=== PATIENT | male | born 1945 | race Caucasian/White ===

== ENCOUNTER → 2018-11-28 12:31 | Outpatient (CLI) | payer MEDICARE, SELFPAY ==
--- NOTE | 2018-11-28 12:35 | XR_ITS ---
XR chest 2V HISTORY: ITS.REASON: dyspnea ORDERING PHYSICIAN: Yamileth Eubanks PATIENT AGE: 72 years COMPARISON: None available FINDINGS: The lung grace are well expanded. There is opacity and blunting of the left costophrenic angle appearance suggesting a small to moderate-sized pleural effusion extending at the left chest wall to almost the level of the hilum. The left mid and upper lung field are clear and right lung field is well expanded and clear. There is mild generalized cardio megaly. The pulmonary vascularity appears normal. There is left atrial appendage clip seen. There are sternal wire sutures and surgical clips likely from previous bypass procedure. There is a left infraclavicular cardiac device with dual chamber electrodes both in good position. There is a coronary artery stent noted. There is mild generalized osteopenia the thoracic spine but there is no compression fracture. IMPRESSION: Mild generalized cardio megaly small moderate size left pleural effusion however without previous films for comparison findings could be due to chronic pleural scarring, there is no pulmonary congestion to suggest congestive failure.
[2018-11-28 13:10] LABS: Anion Gap 13.8 mEq/L (5-15); Blood Urea Nitrogen 28 mg/dL (7-18); Calcium 8.8 mg/dL (8.5-10.1); Carbon Dioxide 26 mmol/L (21.0-32.0); Chloride 103 mmol/L (98-107); Creatinine,Serum 1.88 mg/dL (0.70-1.30); Estimated Glomerular Filt Rate 35 ml/min (>60); GFR (African American) 43 ML/MIN (>60); Glucose 227 mg/dL (74-106); Potassium 4.8 mmoL/L (3.5-5.1); Sodium 138 mmol/L (136-145)
== END ==
PROVIDERS: PCP Family Medicine; Visit Provider Urology
DX: E11.9 Type 2 diabetes mellitus without complications (principal); I11.0 Hypertensive heart disease with heart failure; I25.10 Atherosclerotic heart disease of native coronary artery without angina pectoris; I48.0 Paroxysmal atrial fibrillation; I50.22 Chronic systolic (congestive) heart failure; N18.4 Chronic kidney disease, stage 4 (severe); Z95.810 Presence of automatic (implantable) cardiac defibrillator; E78.49 Other hyperlipidemia; Z79.84 Long term (current) use of oral hypoglycemic drugs
CPT/HCPCS: 36415; 71046; 80048; 83880

== ENCOUNTER → 2018-12-10 10:36 | Outpatient (CLI) | payer MEDICARE, SELFPAY ==
--- NOTE | 2018-12-10 10:39 | CA_ITS ---
PROCEDURE: 2-D M-mode and color Doppler study INDICATIONS FOR THE TEST: Chest pain COPD Heart Murmur Tobacco Smoking Palpitations Fatigue Syncope Edema+ Hypertension+Diabetes Mellitus Rheumatic Fever SOB [place] Obesity Hyperlipidemia+ Family History HD Additional History CHF,,CABG,AICD,CAD PATIENT INFORMATION HEIGHT: 70 WEIGHT:182 GENDER: Male B/P:128/69 2-D/M-MODE INTERPRETATION: 2-D MEASUREMENTS OBSERVED VALUES IN CMS Right Ventricular Dimension (RVDd) 1.4 Interventricular Septum (Thickness)(IVsd) 0.8 Left Ventricular Internal Dimensions(LVIDd) 8.2 Left Ventricular Posterior Wall (Thickness)(LVPWd) 0.9 Aortic Root 3.3 Aortic Cusp Separation 2.3 Left Atrial Dimensions (LAD) 5.3 2D 1. Left atrium is moderately enlarged, left ventricle is moderately dilated, there is severely reduced left ventricular systolic function, visually estimated ejection fraction approximately 20-25%, there is marked hypokinesis involving mid to distal septum, anterior, anteroapical, apex and inferior apical wall. 2. The right atrium and right ventricle are normal size and contractility, there is an ICD lead seen in the right ventricle. 3. The aortic valve is thickened and calcified leaflet continue to display mobility. 4. The mitral valve has mitral calcification, posterior mitral leaflet is redundant. 5. The tricuspid valve is grossly normal. 6. Pulmonic valve is minimally thickened and fibrosed. 7. No significant pericardial effusion noted. DOPPLER INTERROGATION: 1. The aortic out flow velocity within normal range, there is no aortic stenosis, there is mild aortic insufficiency. 2. The mitral inflow velocity within normal range, there is no mitral stenosis, there is moderate to severe mitral regurgitation. 3. There is mild tricuspid regurgitation, tricuspid regurgitation jet velocity is inadequate for calculation of the right ventricular systolic pressure. 4. There is severe pulmonic insufficiency seen. CONCLUSION: 1. Left atrium is moderately enlarged, moderately dilated left ventricle, severely reduced left ventricular systolic function, visually estimated ejection fraction of 20-25% with multiple segmental wall motion abnormality described above, Doppler evidence of raised left atrial pressure. 2. Mild aortic, moderate to severe mitral, severe pulmonic and mild tricuspid regurgitation. 3. No significant pericardial effusion noted.
== END ==
PROVIDERS: PCP Family Medicine; Visit Provider Internal Medicine
DX: R06.02 Shortness of breath (principal)
CPT/HCPCS: 93306

== ENCOUNTER 2019-01-06 10:30 | Inpatient (IN) ==
[2019-01-06 10:01] LABS: Anion Gap 12.8 mEq/L (5-15); Blood Urea Nitrogen 28 mg/dL (7-18); Calcium 9.1 mg/dL (8.5-10.1); Carbon Dioxide 32 mmol/L (21.0-32.0); Chloride 98 mmol/L (98-107); Glucose 261 mg/dL (74-106); Potassium 3.8 mmoL/L (3.5-5.1); Sodium 139 mmol/L (136-145)
[2019-01-06 11:17] LABS: Basophils % 0.2 % (0.1-2.0); Eosinophils # 0.1 K/mm3 (0.0-0.4); Eosinophils % 2.9 % (0.1-12.0); Hematocrit 35.1 % (42.0-52.0); Hemoglobin 11.4 g/dL (14.1-18.0); Lymphocytes # 1.3 K/mm3 (0.7-4.5); Mean Corpuscular HGB Conc 32.5 g/dL (31.8-35.4); Mean Corpuscular Hemoglobin 28.5 pg (27.0-31.2); Mean Corpuscular Volume 87.8 fl (80-94); Mean Platelet Volume 9.1 fl (7.4-10.4); Monocytes # 0.3 K/mm3 (0.1-1.0); Monocytes % 7.3 % (1.7-9.3); Neutrophils # 2.5 K/mm3 (1.8-7.8); Neutrophils % 59.5 % (37.0-80.0); Platelet Count 124 K/mm3 (142-424); Red Blood Count 3.99 M/mm3 (4.60-6.20); Red Cell Distribution Width 14.4 % (11.5-17.5); White Blood Count 4.2 K/mm3 (4.8-10.8)
[2019-01-06 11:56] LABS: Basophils % 0.4 % (0.1-2.0); Eosinophils # 0.1 K/mm3 (0.0-0.4); Eosinophils % 2.7 % (0.1-12.0); Hematocrit 35.4 % (42.0-52.0); Hemoglobin 11.6 g/dL (14.1-18.0); Lymphocytes # 1.3 K/mm3 (0.7-4.5); Lymphocytes % 28.8 % (10-50); Mean Corpuscular HGB Conc 32.8 g/dL (31.8-35.4); Mean Corpuscular Hemoglobin 28.3 pg (27.0-31.2); Mean Corpuscular Volume 86.4 fl (80-94); Mean Platelet Volume 9.3 fl (7.4-10.4); Monocytes # 0.3 K/mm3 (0.1-1.0); Monocytes % 6.9 % (1.7-9.3); Neutrophils # 2.8 K/mm3 (1.8-7.8); Neutrophils % 61.2 % (37.0-80.0); Platelet Count 135 K/mm3 (142-424); Red Cell Distribution Width 14.6 % (11.5-17.5); White Blood Count 4.6 K/mm3 (4.8-10.8)
[2019-01-06 11:58] LABS: Anion Gap 10.6 mEq/L (5-15); Calcium 9.2 mg/dL (8.5-10.1); Potassium 3.6 mmoL/L (3.5-5.1)
[2019-01-07 06:16] LABS: Basophils % 0.4 % (0.1-2.0); Eosinophils # 0.1 K/mm3 (0.0-0.4); Eosinophils % 2.7 % (0.1-12.0); Hematocrit 33.1 % (42.0-52.0); Hemoglobin 10.6 g/dL (14.1-18.0); Lymphocytes # 1.4 K/mm3 (0.7-4.5); Lymphocytes % 26.7 % (10-50); Mean Corpuscular HGB Conc 31.9 g/dL (31.8-35.4); Mean Corpuscular Hemoglobin 27.7 pg (27.0-31.2); Mean Corpuscular Volume 86.7 fl (80-94); Mean Platelet Volume 10.1 fl (7.4-10.4); Monocytes # 0.3 K/mm3 (0.1-1.0); Monocytes % 5.8 % (1.7-9.3); Neutrophils # 3.4 K/mm3 (1.8-7.8); Neutrophils % 64.4 % (37.0-80.0); Platelet Count 123 K/mm3 (142-424); Red Blood Count 3.82 M/mm3 (4.60-6.20); Red Cell Distribution Width 14.3 % (11.5-17.5); White Blood Count 5.3 K/mm3 (4.8-10.8)
[2019-01-07 06:32] LABS: Anion Gap 11.4 mEq/L (5-15); Calcium 8.9 mg/dL (8.5-10.1); Potassium 3.4 mmoL/L (3.5-5.1)
[2019-01-07 08:18] LABS: Albumin Level 3.1 gm/dL (3.4-5.0); Bilirubin,Direct 0.2 mg/dL (0.0-0.2); Bilirubin,Indirect 0.5 mg/dL (0.0-0.9); Bilirubin,Total 0.7 mg/dL (0.2-1.0); Chol/HDL Ratio 4.5 (1-3.5); Total Protein,Serum 6.1 gm/dL (6.4-8.2)
--- NOTE | 2019-01-07 08:22 | Pharmacy Consult Notes ---
[facility] Pharmacy VTE Monitoring - Patient Demographics Admission date: 01/06/19 Report Date: 01/07/19 Time: 08:21 Allergies/Adverse Reactions: Patient Allergies celecoxib [From Celebrex] Allergy (Mild, Verified 01/06/19 09:17) cortisone Allergy (Mild, Verified 01/06/19 09:17) ibuprofen Allergy (Mild, Verified 01/06/19 09:17) Xsmauwt-Ivo-Vab Reductase Inhibitor Allergy (Mild, Verified 01/06/19 09:17) penicilin Allergy (Mild, Uncoded 01/06/19 09:17) Height: 1.78 m Weight: 82.146 kg - VTE Risk Labs: VTE Related Lab Results Hgb 10.6 g/dL (14.1-18.0) L 01/07/19 05:39 Hct 33.1 % (42.0-52.0) L 01/07/19 05:39 Plt Count 123 K/mm3 (142-424) L 01/07/19 05:39 BUN 25 mg/dL (7-18) H 01/07/19 05:39 Creatinine 2.03 mg/dL (0.70-1.30) H 01/07/19 05:39 Estimated Creat Clear 37 mL/min (50-200) 01/07/19 05:39 Was VTE Risk Assessment Performed: Yes VTE Score: 6 VTE Risk Level: Moderate Risk Clinical Trial Participant: No - Prophylaxis VTE Prophylaxis Ordered?: Yes Types of VTE Prophylaxis: TEDS Knee High Location of Applied Device: Refused
--- NOTE | 2019-01-07 11:35 | Progress Note ---
Subjective Date: 01/07/19 Time: 11:32 Principal diagnosis: CHF, CAD Interval history: This is a 73-year-old gentleman who was seen in Dr. Rivero's outpatient clinic yesterday. The patient was found to have new onset regurgitation. The patient was having shortness of breath and edema. He was having symptoms of class IV congestive heart failure and in the setting of moderate to severe mitral regurgitation this was thought to maybe be an ischemic mitral regurgitation from his history of circumflex disease. The patient underwent right and left cardiac catheterization yesterday secondary to his symptoms and new onset of moderate to severe mitral regurgitation. The patient required no PCI, but was found to have severely elevated PA pressures. The patient was started on a milrinone drip through the night. His edema has significantly improved. The patient reports that he is no longer short of breath. His creatinine remained stable. Denies any chest pain or pressure. No shortness of breath. He states his edema is much better. No fever chills nausea vomiting diarrhea PND or orthopnea. Exam Vital signs and Labs for Last 24 Hours: Temp Pulse Resp BP Pulse Ox 98.5 F 68 16 114/57 L 99 01/07/19 04:00 01/07/19 08:00 01/07/19 08:00 01/07/19 06:59 01/07/19 08:00 Laboratory Results - last 24 hr 01/06/19 08:59: B-Natriuretic Peptide 913 H 01/06/19 10:50: WBC 4.6 L, RBC 4.10 L, Hgb 11.6 L, Hct 35.4 L, MCV 86.4, MCH 28.3, MCHC 32.8, RDW 14.6, Plt Count 135 L, MPV 9.3, Neut % (Auto) 61.2, Lymph % (Auto) 28.8, [place] % (Auto) 6.9, Eos % (Auto) 2.7, Baso % (Auto) 0.4, Neut # (Auto) 2.8, Lymph # (Auto) 1.3, [place] # (Auto) 0.3, Eos # (Auto) 0.1, Baso # (Auto) 0.0 01/06/19 10:50: Sodium 137, Potassium 3.6, Chloride 98, Carbon Dioxide 32, Anion Gap 10.6, BUN 29 H, Creatinine 2.18 H, Estimated Creat Clear 34, Estimated GFR 30 L, Est GFR ( Amer) 36 L, Glucose 265 H, Calcium 9.2 01/06/19 11:32: POC Glucose 300 H 01/06/19 12:50: ABG O2 Sat (Measured) 66 L, POC VBG O2 Sat ([place]) 67 L 01/06/19 16:51: POC Glucose 116 H 01/06/19 20:01: POC Glucose 226 H 01/07/19 05:16: POC Glucose 146 H 01/07/19 05:39: WBC 5.3, RBC 3.82 L, Hgb 10.6 L, Hct 33.1 L, MCV 86.7, MCH 27.7, MCHC 31.9, RDW 14.3, Plt Count 123 L, MPV 10.1, Neut % (Auto) 64.4, Lymph % (Auto) 26.7, [place] % (Auto) 5.8, Eos % (Auto) 2.7, Baso % (Auto) 0.4, Neut # (Auto) 3.4, Lymph # (Auto) 1.4, [place] # (Auto) 0.3, Eos # (Auto) 0.1, Baso # (Auto) 0.0 01/07/19 05:39: Sodium 141, Potassium 3.4 L, Chloride 103, Carbon Dioxide 30, Anion Gap 11.4, BUN 25 H, Creatinine 2.03 H, Estimated Creat Clear 37, Estimated GFR 32 L, Est GFR ( Amer) 39 L, Glucose 150 H D, Calcium 8.9, Magnesium 2.0 01/07/19 05:39: Total Bilirubin 0.7, Direct Bilirubin 0.2, Indirect Bilirubin 0.5, AST 14 L, ALT 10 L, Alkaline Phosphatase 24 L, Total Protein 6.1 L, Albumin 3.1 L, Triglycerides 92, Cholesterol 121 L, LDL Cholesterol 76, VLDL Cholesterol 18, HDL Cholesterol 27, Cholesterol/HDL Ratio 4.5 H I & O for Last 24 hours: Intake & Output 01/04/19 01/05/19 01/06/19 01/07/19 23:59 23:59 23:59 23:59 Intake Total 720 / 720 673 / 673 Output Total 1075 / 1075 Balance 720 / 720 -402 / -402 Weight 180 lb 4 oz 181 lb 1.6 oz Narrative: Telemetry strip is sinus rhythm with a rate of 69. - Constitutional no acute distress, average body habitus - *Routine HEENT Exam Head: Present: normocephalic, atraumatic Eye: Present: EOMI, PERRL ENT: Present: mucous membranes moist - *Routine Neck Exam Present: supple, full ROM, carotid bruit, normal carotid upstroke. Absent: JVD, lymphadenopathy - *Routine Respiratory Exam Present: CTA bilaterally - *Routine Cardiovascular Exam Present: RRR, Normal S1, Normal S2, murmur (3 out of 6 systolic murmur) - *Routine Abdominal Exam Present: soft, normoactive bowel sounds. Absent: tenderness - *Routine Extremities Exam Present: full ROM, pulses intact, normal capillary refill. Absent: cyanosis, clubbing, edema - *Routine Skin Exam Present: intact, warm. Absent: rash - *Routine Neurological Exam Present: alert, oriented X3, CN II-XII intact. Absent: sensory deficit, motor deficit - Detailed Eye Exam Eyelids: Left normal inspection Progress Note: A&P (1) Acute on chronic systolic (congestive) heart failure Status: Acute Current Visit: Yes (2) Edema Status: Acute Current Visit: No (3) Pulmonic valve regurgitation Status: Acute Current Visit: No (4) History of coronary artery bypass graft Status: Chronic Current Visit: No (5) Dyspnea on exertion Status: Acute Current Visit: No (6) CHF NYHA class IV Status: Acute Current Visit: No (7) Mitral valve regurgitation Status: Acute Current Visit: No (8) CKD (chronic kidney disease) stage 4, GFR 15-29 ml/min Status: Chronic Current Visit: No (9) DM (diabetes mellitus) Status: Chronic Current Visit: No (10) CAD (coronary artery disease) Status: Chronic Current Visit: No (11) HLD (hyperlipidemia) Status: Chronic Current Visit: No (12) HHD (hypertensive heart disease) Status: Chronic Current Visit: No (13) Afib Status: Chronic Current Visit: No (14) AICD (automatic cardioverter/defibrillator) present Status: Chronic Current Visit: No (15) Severe pulmonary arterial systolic hypertension Status: Acute Current Visit: Yes Assessment and Plan for All Diagnoses:: Plan: 1. The patient was admitted to the hospital after his left and right cardiac catheterization secondary to acute on chronic systolic congestive heart failure and severe pulmonary hypertension. The patient was started on a milrinone drip. He has diuresed well. The patient no longer has bilateral lower extremity edema and he states that his shortness of breath has essentially resolved. We will go ahead and stop the milrinone drip. 2. We will stop his oral Lasix and switch him over to torsemide 50 mg daily for diuresis. 3. The patient has been started on Entresto 24/26 mg p.o. twice daily for his heart failure. 4. There has been some confusion about the patient's losartan. He states that he is sure he is not taking this medication. However [facility] pharmacy on [address] says that the patient has been filling this medication every month. The patient has been educated on not taking his losartan and replacing that with Entresto if he indeed has this medication at home although he states he does not. 5. His coronary artery disease is stable. 6. His blood pressure is well controlled 7. His LDL goal is less than 55. His LDL is currently 76. He is intolerant of statins. His fenofibrate was stopped but we will get this restarted. 8. The patient does have chronic kidney disease. His creatinine is stable at 2.0. We will repeat a BMP in 1 week. 9. The patient does have diabetes. This is being managed per his primary care provider. 10. No further recommendations at this time from a cardiovascular standpoint. The patient can be discharged home from a cardiovascular standpoint and he needs to follow-up in 1 week on an outpatient basis. 11. The plan will be to continue to diurese the patient for 1 month on an outpatient basis. We will repeat his echocardiogram in 1 month and if he still has moderate to severe mitral regurgitation he will require a mitral clip at that time. However in 1 month if his mitral valve regurgitation has improved then he will not require surgery. The patient verbalizes understanding. Thank you for the opportunity to help participate in the care of this patient.
--- NOTE | 2019-01-07 13:14 | H&P/Discharge Summary ---
General - General Admission date:: 01/06/19 Discharge date: 01/07/19 *Admission Date: 01/06/19 *Chief complaint: sob *History of present illness: this wm was seen by card and has op heart cath and because of abd finding in cath-Adequate coronary artery revascularization as described above 2.Elevated left-sided filling pressures with severe pulmonary hypertension PLAN: 1. Patient will be started on low-dose milrinone and admitted to the hospital for decompensated heart failure 2. Patient will be restarted on losartan. Historically patient developed increasing creatinine however it was possible this came from accelerated doses of Lasix 3. Consideration will be given to perform mitral clip based on interval development of severe MR 4. Continue standard therapy for systolic heart failure 5. Patient may be a candidate for cardiac resynchronization therapy. Telemetry today reveals the QRS duration is 120 ms. I will evaluate the 12-lead EKG and if her QRS duration is 120 ms we will likely perform NURSE SPECIAL-D therapy for this patient as the severe mitral regurgitation likely common from the interval development of conduction abnormalities pt was admitted for milrinone drip [facility] History I have reviewed the patient's past medical history: Yes Medical History: Reports:: Congestive Heart Failure, Coronary Artery Disease, Diabetes Mellitus Type 2, Heart Murmur, Hyperlipidemia, Hypertension, Internal Pacemaker, Myocardial Infarction, Peripheral Artery Disease Denies:: Cancer, Diabetes Mellitus Type 1, MRSA, Seizures Have you ever received a pneumonia vaccine?: Yes Have you received a flu vaccine this season?: Yes Other Medical History: Reports: Arthritis, Cataracts Other Surgeries: Yes: Angiogram, CABG, Cancer Surgery (2017, 2018), Cardiac Surgery, Cholecystectomy, Mitral Valve Replacement, Pacemaker, Skin Cancer Excision Amputation: No Fractures: No - *Social History Educational Level: Completed Grade School Smoking Status: Never smoker Alcohol Intake: never Substance Use Type: denies use Occupational Status: retired Housing: house Household Members: spouse Travel in the last 8 weeks: None - Psychiatric History Expresses thoughts of harming self/others: None Suicide Plan Description: No Plan Family Hx:: Stroke, Heart Attack Review of Systems - Review of Systems Review of systems:: pertinent systems reviewed and negative unless documented below - Constitutional Reports fatigue, Denies fever(s) - Eyes Denies change in vision - ENT Denies change in voice, Denies sore throat, Denies throat swelling - *Cardiovascular Reports shortness of breath, Denies chest pain - *Respiratory Reports shortness of breath with activity, Denies cough - *Gastrointestinal Denies abdominal pain - *Genitourinary Denies blood in urine - *Musculoskeletal Denies joint swelling, Denies neck pain - Integumentary/Breasts Denies rash - *Neurologic Denies headache(s), Denies seizure-like activity - Psychiatric Denies anxiety Exam Vital signs and Labs for Last 24 Hours: Temp Pulse Resp BP Pulse Ox 98.3 F 73 18 122/56 L 98 01/07/19 08:00 01/07/19 12:00 01/07/19 12:00 01/07/19 12:00 01/07/19 12:00 Laboratory Results - last 24 hr 01/06/19 16:51: POC Glucose 116 H 01/06/19 20:01: POC Glucose 226 H 01/07/19 05:16: POC Glucose 146 H 01/07/19 05:39: WBC 5.3, RBC 3.82 L, Hgb 10.6 L, Hct 33.1 L, MCV 86.7, MCH 27.7, MCHC 31.9, RDW 14.3, Plt Count 123 L, MPV 10.1, Neut % (Auto) 64.4, Lymph % (Auto) 26.7, [place] % (Auto) 5.8, Eos % (Auto) 2.7, Baso % (Auto) 0.4, Neut # (Auto) 3.4, Lymph # (Auto) 1.4, [place] # (Auto) 0.3, Eos # (Auto) 0.1, Baso # (Auto) 0.0 01/07/19 05:39: Sodium 141, Potassium 3.4 L, Chloride 103, Carbon Dioxide 30, Anion Gap 11.4, BUN 25 H, Creatinine 2.03 H, Estimated Creat Clear 37, Estimated GFR 32 L, Est GFR ( Amer) 39 L, Glucose 150 H D, Calcium 8.9, Magnesium 2.0 01/07/19 05:39: Total Bilirubin 0.7, Direct Bilirubin 0.2, Indirect Bilirubin 0.5, AST 14 L, ALT 10 L, Alkaline Phosphatase 24 L, Total Protein 6.1 L, Albumin 3.1 L, Triglycerides 92, Cholesterol 121 L, LDL Cholesterol 76, VLDL Cholesterol 18, HDL Cholesterol 27, Cholesterol/HDL Ratio 4.5 H 01/07/19 13:02: POC Glucose 238 H I & O for Last 24 hours: Intake & Output 01/05/19 01/06/19 01/07/19 01/08/19 11:59 11:59 11:59 11:59 Intake Total 1393 / 1393 Output Total 1075 / 1075 Balance 318 / 318 Weight 181 lb 181 lb 1.6 oz - Constitutional no acute distress - *Routine HEENT Exam Head: Present: normocephalic Eye: Present: EOMI, PERRL ENT: Present: mucous membranes dry - *Routine Neck Exam Absent: JVD, carotid bruit, thyromegaly - *Routine Respiratory Exam Present: CTA bilaterally - *Routine Cardiovascular Exam Present: RRR, murmur, S4 - *Routine Abdominal Exam Present: soft - *Routine Extremities Exam Present: full ROM. Absent: calf tenderness - *Routine Skin Exam Present: intact - *Routine Neurological Exam Present: alert, oriented X3, CN II-XII intact - Routine Psychiatric Exam Present: normal affect Hospital Course Hospital Course: pt did well on drip in hospital with no new sx and labs stable -he was seen by micheal arvizu is a 73-year-old gentleman who was seen in Dr. Rivero's outpatient clinic yesterday. The patient was found to have new onset regurgitation. The patient was having shortness of breath and edema. He was having symptoms of class IV congestive heart failure and in the setting of moderate to severe m itral regurgitation this was thought to maybe be an ischemic mitral regurgitation from his history of circumflex disease. The patient underwent right and left cardiac catheterization yesterday secondary to his symptoms and new onset of moderate to severe mitral regurgitation. The patient required no PCI, but was found to have severely elevated PA pressures. The patient was started on a milrinone drip through the night. His edema has significantly improved. The patient reports that he is no longer short of breath. His creatinine remained stable. Denies any chest pain or pressure. No shortness of breath. He states his edema is much better. No fever chills nausea vomiting diarrhea PND or orthopnea. he patient was admitted to the hospital after his left and right cardiac catheterization secondary to acute on chronic systolic congestive heart failure and severe pulmonary hypertension. The patient was started on a milrinone drip. He has diuresed well. The patient no longer has bilateral lower extremity edema and he states that his shortness of breath has essentially resolved. We will go ahead and stop the milrinone drip. 2. We will stop his oral Lasix and switch him over to torsemide 50 mg daily for diuresis. 3. The patient has been started on Entresto 24/26 mg p.o. twice daily for his heart failure. 4. There has been some confusion about the patient's losartan. He states that he is sure he is not taking this medication. However [facility] pharmacy on [address] says that the patient has been filling this medication every month. The patient has been educated on not taking his losartan and replacing that with Entresto if he indeed has this medication at home although he states he does not. 5. His coronary artery disease is stable. 6. His blood pressure is well controlled 7. His LDL goal is less than 55. His LDL is currently 76. He is intolerant of statins. His fenofibrate was stopped but we will get this restarted. 8. The patient does have chronic kidney disease. His creatinine is stable at 2.0. We will repeat a BMP in 1 week. 9. The patient does have diabetes. This is being managed per his primary care provider. 10. No further recommendations at this time from a cardiovascular standpoint. The patient can be discharged home from a cardiovascular standpoint and he needs to follow-up in 1 week on an outpatient basis. 11. The plan will be to continue to diurese the patient for 1 month on an outpatient basis. We will repeat his echocardiogram in 1 month and if he still has moderate to severe mitral regurgitation he will require a mitral clip at that time. However in 1 month if his mitral valve regurgitation has improved then he will not require surgery. The patient verbalizes understanding. Thank you for the opportunity to help participate in the care of this patient. Results Labs on day of discharge: Labs from last 24 hours 01/07/19 01/07/19 01/07/19 13:02 05:39 05:39 WBC RBC Hgb Hct MCV MCH MCHC RDW Plt Count MPV Neut % (Auto) Lymph % (Auto) [place] % (Auto) Eos % (Auto) Baso % (Auto) Neut # (Auto) Lymph # (Auto) [place] # (Auto) Eos # (Auto) Baso # (Auto) Sodium 141 Potassium 3.4 L Chloride 103 Carbon Dioxide 30 Anion Gap 11.4 BUN 25 H Creatinine 2.03 H Estimated Creat Clear 37 Estimated GFR 32 L Est GFR ( Amer) 39 L Glucose 150 H D POC Glucose 238 H Calcium 8.9 Magnesium 2.0 Total Bilirubin 0.7 Direct Bilirubin 0.2 Indirect Bilirubin 0.5 AST 14 L ALT 10 L Alkaline Phosphatase 24 L Total Protein 6.1 L Albumin 3.1 L Triglycerides 92 Cholesterol 121 L LDL Cholesterol 76 VLDL Cholesterol 18 HDL Cholesterol 27 Cholesterol/HDL Ratio 4.5 H 01/07/19 01/07/19 01/06/19 05:39 05:16 20:01 WBC 5.3 RBC 3.82 L Hgb 10.6 L Hct 33.1 L MCV 86.7 MCH 27.7 MCHC 31.9 RDW 14.3 Plt Count 123 L MPV 10.1 Neut % (Auto) 64.4 Lymph % (Auto) 26.7 [place] % (Auto) 5.8 Eos % (Auto) 2.7 Baso % (Auto) 0.4 Neut # (Auto) 3.4 Lymph # (Auto) 1.4 [place] # (Auto) 0.3 Eos # (Auto) 0.1 Baso # (Auto) 0.0 Sodium Potassium Chloride Carbon Dioxide Anion Gap BUN Creatinine Estimated Creat Clear Estimated GFR Est GFR ( Amer) Glucose POC Glucose 146 H 226 H Calcium Magnesium Total Bilirubin Direct Bilirubin Indirect Bilirubin AST ALT Alkaline Phosphatase Total Protein Albumin Triglycerides Cholesterol LDL Cholesterol VLDL Cholesterol HDL Cholesterol Cholesterol/HDL Ratio 01/06/19 16:51 WBC RBC Hgb Hct MCV MCH MCHC RDW Plt Count MPV Neut % (Auto) Lymph % (Auto) [place] % (Auto) Eos % (Auto) Baso % (Auto) Neut # (Auto) Lymph # (Auto) [place] # (Auto) Eos # (Auto) Baso # (Auto) Sodium Potassium Chloride Carbon Dioxide Anion Gap BUN Creatinine Estimated Creat Clear Estimated GFR Est GFR ( Amer) Glucose POC Glucose 116 H Calcium Magnesium Total Bilirubin Direct Bilirubin Indirect Bilirubin AST ALT Alkaline Phosphatase Total Protein Albumin Triglycerides Cholesterol LDL Cholesterol VLDL Cholesterol HDL Cholesterol Cholesterol/HDL Ratio DS: Diagnosis - Discharge Diagnosis (1) Acute on chronic systolic (congestive) heart failure Status: Acute (2) Edema Status: Acute (3) Pulmonic valve regurgitation Status: Acute (4) History of coronary artery bypass graft Status: Chronic (5) Dyspnea on exertion Status: Acute (6) CHF NYHA class IV Status: Acute (7) Mitral valve regurgitation Status: Acute (8) CKD (chronic kidney disease) stage 4, GFR 15-29 ml/min Status: Chronic (9) DM (diabetes mellitus) Status: Chronic (10) CAD (coronary artery disease) Status: Chronic (11) HLD (hyperlipidemia) Status: Chronic (12) HHD (hypertensive heart disease) Status: Chronic (13) Afib Status: Chronic (14) AICD (automatic cardioverter/defibrillator) present Status: Chronic (15) Severe pulmonary arterial systolic hypertension Status: Acute (16) Thrombocytopenia Status: Acute Discharge Medications - Medications for Discharge Home Medication List at Discharge: New Sacubitril/Valsartan [Entresto 24/26mg Tablet] 1 each PO BID #60 tablet Fenofibrate,Micronized [Tricor 134mg] 134 mg PO PM capsule Continue omeprazole 20 mg capsule,delayed release 20 mg PO DAILY cap clopidogrel 75 mg tablet 75 mg PO DAILY tab carvedilol 12.5 mg tablet 12.5 mg PO BID glipizide 10 mg tablet 20 mg PO DAILY Fenofibrate 160 mg PO DAILY glipiZIDE [Glipizide] 1 - 2 tab PO HS Discontinued Furosemide [Furosemide 40MG tAB] 80 mg PO DAILY
== END 2019-01-07 14:39 | disposition home or self-care (01) | DRG 286 ==
LOC: CATHLAB 10:30 → 2ND 10:30 → OBSVTOIN 13:20
PROVIDERS: ADMIT Emergency Medicine; ATTEND Emergency Medicine
DX: C44.321 Squamous cell carcinoma of skin of nose; I27.22 Pulmonary hypertension due to left heart disease; I50.23 Acute on chronic systolic (congestive) heart failure; I25.10 Atherosclerotic heart disease of native coronary artery without angina pectoris; Z88.0 Allergy status to penicillin; Z95.810 Presence of automatic (implantable) cardiac defibrillator; I37.1 Nonrheumatic pulmonary valve insufficiency; Z79.899 Other long term (current) drug therapy; N18.4 Chronic kidney disease, stage 4 (severe); I25.2 Old myocardial infarction; Z95.5 Presence of coronary angioplasty implant and graft; Z95.1 Presence of aortocoronary bypass graft; I13.0 Hypertensive heart and chronic kidney disease with heart failure and stage 1 through stage 4 chronic kidney disease, or unspecified chronic kidney disease; I48.0 Paroxysmal atrial fibrillation; E11.22 Type 2 diabetes mellitus with diabetic chronic kidney disease; Z88.8 Allergy status to other drugs, medicaments and biological substances; I34.0 Nonrheumatic mitral (valve) insufficiency
CPT/HCPCS: 36415; 80048; 80061; 80076; 82810; 82962; 83735; 83880; 85025; 93461; 99152; C1725; C1769; C1894; J1644; J2260; Q9967

== ENCOUNTER → 2019-01-13 11:32 | Outpatient (CLI) | payer MEDICARE, SELFPAY ==
[2019-01-13 13:09] LABS: Anion Gap 15.4 mEq/L (5-15); Blood Urea Nitrogen 31 mg/dL (7-18); Calcium 8.7 mg/dL (8.5-10.1); Carbon Dioxide 25 mmol/L (21.0-32.0); Chloride 102 mmol/L (98-107); Creatinine,Serum 1.87 mg/dL (0.70-1.30); Estimated Glomerular Filt Rate 35 ml/min (>60); GFR (African American) 43 ML/MIN (>60); Glucose 292 mg/dL (74-106); Potassium 5.4 mmoL/L (3.5-5.1); Sodium 137 mmol/L (136-145)
== END ==
PROVIDERS: Visit Provider Nurse Practitioner Family
DX: N18.4 Chronic kidney disease, stage 4 (severe) (principal)
CPT/HCPCS: 36415; 80048

== ENCOUNTER → 2019-01-27 12:36 | Outpatient (CLI) | payer MEDICARE, SELFPAY ==
[2019-01-27 13:32] LABS: Anion Gap 10.8 mEq/L (5-15); Blood Urea Nitrogen 38 mg/dL (7-18); Calcium 8.8 mg/dL (8.5-10.1); Carbon Dioxide 31 mmol/L (21.0-32.0); Chloride 100 mmol/L (98-107); Creatinine,Serum 2.38 mg/dL (0.70-1.30); Estimated Glomerular Filt Rate 27 ml/min (>60); GFR (African American) 32 ML/MIN (>60); Glucose 263 mg/dL (74-106); Potassium 3.8 mmoL/L (3.5-5.1); Sodium 138 mmol/L (136-145)
== END ==
PROVIDERS: Visit Provider Urology
DX: C44.321 Squamous cell carcinoma of skin of nose (principal); E11.9 Type 2 diabetes mellitus without complications; E78.5 Hyperlipidemia, unspecified; I11.9 Hypertensive heart disease without heart failure; I25.10 Atherosclerotic heart disease of native coronary artery without angina pectoris; I48.91 Unspecified atrial fibrillation; I50.20 Unspecified systolic (congestive) heart failure; N18.4 Chronic kidney disease, stage 4 (severe); Z95.810 Presence of automatic (implantable) cardiac defibrillator; Z79.84 Long term (current) use of oral hypoglycemic drugs
CPT/HCPCS: 36415; 80048

== ENCOUNTER → 2019-02-09 13:17 | Outpatient (CLI) | payer MEDICARE, SELFPAY ==
[2019-02-09 14:02] LABS: Anion Gap 13.8 mEq/L (5-15); Blood Urea Nitrogen 51 mg/dL (7-18); Calcium 9.2 mg/dL (8.5-10.1); Carbon Dioxide 32 mmol/L (21.0-32.0); Chloride 99 mmol/L (98-107); Creatinine,Serum 2.96 mg/dL (0.70-1.30); Estimated Glomerular Filt Rate 21 ml/min (>60); GFR (African American) 25 ML/MIN (>60); Glucose 286 mg/dL (74-106); Potassium 4.8 mmoL/L (3.5-5.1); Sodium 140 mmol/L (136-145)
--- NOTE | 2019-02-09 14:31 | CA_ITS ---
PROCEDURE: Limited 2-D M-mode and color Doppler study INDICATIONS FOR THE TEST: Chest pain COPD Heart Murmur Tobacco Smoking Palpitations Fatigue Syncope Edema Hypertension+Diabetes Mellitus+ Rheumatic Fever SOB [place] Obesity Hyperlipidemia+ Family History HD Additional History CM, MV INSUFF,AICD,A-FIB,CHF,PUL HTN,CABG LIMITED ECHO PATIENT INFORMATION HEIGHT: 70 WEIGHT:181 GENDER: Male B/P:130/62 2-D/M-MODE INTERPRETATION: 2-D MEASUREMENTS OBSERVED VALUES IN CMS Right Ventricular Dimension (RVDd) 2.9 Interventricular Septum (Thickness)(IVsd) 0.8 Left Ventricular Internal Dimensions(LVIDd) 7.5 Left Ventricular Posterior Wall (Thickness)(LVPWd) 0.7 Aortic Root 2.8 Aortic Cusp Separation 2.1 Left Atrial Dimensions (LAD) 4.6 2D 1. The EKG is moderately enlarged, left ventricle is moderately dilated, severely reduced left ventricular systolic function, visually estimated ejection fraction approximately 20-25%, there is marked hypokinesis involving the mid to distal septum, anterior, anteroapical, apex and anterolateral wall. 2. The right atrium and right ventricle are mildly enlarged with normal contractility there is an AICD lead seen in the right ventricle. 3. Aortic valve is thickened and calcified, leaflet continue to display mobility 4. Mitral and tricuspid valve leaflets are minimally thickened, there is mild mitral annular calcification present. 5. The tricuspid valve is grossly normal. 6. The pulmonic valve is poorly visualized. 7. No significant pericardial effusion noted. DOPPLER INTERROGATION: Doppler interrogation of the aortic, mitral and tricuspid valvular presence of mild aortic, moderate mitral and tricuspid regurgitation, tricuspid regurgitation jet velocity is inadequate for calculation of the right ventricular systolic pressure. CONCLUSION: 1. Moderately enlarged left atrium, moderately dilated left ventricle, severely reduced left ventricular systolic function, visually estimated ejection fraction 20-25% with segmental wall motion abnormality described above. 2. Mild aortic, moderate mitral and tricuspid regurgitation 3. No significant pericardial effusion noted.
== END ==
PROVIDERS: PCP Family Medicine; Visit Provider Internal Medicine
DX: E78.5 Hyperlipidemia, unspecified (principal); I11.9 Hypertensive heart disease without heart failure; I25.10 Atherosclerotic heart disease of native coronary artery without angina pectoris; I48.91 Unspecified atrial fibrillation; I50.20 Unspecified systolic (congestive) heart failure
CPT/HCPCS: 36415; 80048; 93308

== ENCOUNTER → 2019-06-16 12:02 | Outpatient (CLI) | payer MEDICARE, SELFPAY ==
[2019-06-16 14:05] LABS: Anion Gap 14.4 mEq/L (5-15); Blood Urea Nitrogen 67 mg/dL (7-18); Calcium 9.1 mg/dL (8.5-10.1); Carbon Dioxide 32 mmol/L (21.0-32.0); Chloride 100 mmol/L (98-107); Estimated Glomerular Filt Rate 19 ml/min (>60); GFR (African American) 23 ML/MIN (>60); Glucose 231 mg/dL (74-106); Potassium 4.4 mmoL/L (3.5-5.1); Sodium 142 mmol/L (136-145)
== END ==
PROVIDERS: Visit Provider Nurse Practitioner Family
DX: C44.321 Squamous cell carcinoma of skin of nose (principal); E11.9 Type 2 diabetes mellitus without complications; E78.5 Hyperlipidemia, unspecified; I11.9 Hypertensive heart disease without heart failure; I25.10 Atherosclerotic heart disease of native coronary artery without angina pectoris; I27.21 Secondary pulmonary arterial hypertension; I34.0 Nonrheumatic mitral (valve) insufficiency; I48.91 Unspecified atrial fibrillation; I50.20 Unspecified systolic (congestive) heart failure; N18.4 Chronic kidney disease, stage 4 (severe); R60.9 Edema, unspecified; Z95.1 Presence of aortocoronary bypass graft; Z95.810 Presence of automatic (implantable) cardiac defibrillator
CPT/HCPCS: 36415; 80048

== ENCOUNTER → 2019-08-06 13:30 | Outpatient (POV) | payer MEDICARE, SELFPAY | PROVIDERS: Visit Provider Internal Medicine Nephrology | DX: Z00.00 Encounter for general adult medical examination without abnormal findings (principal) ==

== ENCOUNTER → 2019-08-13 09:15 | Outpatient (CLI) | payer MEDICARE, SELFPAY ==
[2019-08-13 10:19] LABS: Anion Gap 14.1 mEq/L (5-15); Blood Urea Nitrogen 60 mg/dL (7-18); Calcium 9.4 mg/dL (8.5-10.1); Carbon Dioxide 31 mmol/L (21.0-32.0); Chloride 106 mmol/L (98-107); Estimated Glomerular Filt Rate 17 ml/min (>60); GFR (African American) 20 ML/MIN (>60); Glucose 145 mg/dL (74-106); Potassium 5.1 mmoL/L (3.5-5.1); Sodium 146 mmol/L (136-145)
[2019-08-13 10:24] LABS: Creatinine,Serum 3.57 mg/dL (0.70-1.30)
== END ==
PROVIDERS: Visit Provider Internal Medicine
DX: E78.5 Hyperlipidemia, unspecified (principal); I11.9 Hypertensive heart disease without heart failure; I25.10 Atherosclerotic heart disease of native coronary artery without angina pectoris; I48.91 Unspecified atrial fibrillation; I50.20 Unspecified systolic (congestive) heart failure; N18.4 Chronic kidney disease, stage 4 (severe); Z95.810 Presence of automatic (implantable) cardiac defibrillator; I50.23 Acute on chronic systolic (congestive) heart failure
CPT/HCPCS: 36415; 80048; 83880

== ENCOUNTER → 2019-08-17 09:57 | Outpatient (CLI) | payer MEDICARE, SELFPAY ==
[2019-08-17 12:06] LABS: Anion Gap 12.4 mEq/L (5-15); Blood Urea Nitrogen 56 mg/dL (7-18); Calcium 9.2 mg/dL (8.5-10.1); Carbon Dioxide 34 mmol/L (21.0-32.0); Chloride 99 mmol/L (98-107); Estimated Glomerular Filt Rate 17 ml/min (>60); GFR (African American) 20 ML/MIN (>60); Glucose 101 mg/dL (74-106); Potassium 4.4 mmoL/L (3.5-5.1); Sodium 141 mmol/L (136-145)
[2019-08-17 12:10] LABS: Creatinine,Serum 3.62 mg/dL (0.70-1.30)
== END ==
PROVIDERS: Visit Provider Internal Medicine
DX: N18.4 Chronic kidney disease, stage 4 (severe) (principal)
CPT/HCPCS: 36415; 80048

== ENCOUNTER → 2019-09-14 09:25 | Outpatient (CLI) | payer MEDICARE, SELFPAY ==
[2019-09-14 09:47] LABS: Anion Gap 12.9 mEq/L (5-15); Calcium 9.2 mg/dL (8.5-10.1); Carbon Dioxide 32 mmol/L (21.0-32.0); Chloride 99 mmol/L (98-107); Estimated Glomerular Filt Rate 11 ml/min (>60); GFR (African American) 14 ML/MIN (>60); Glucose 289 mg/dL (74-106); Potassium 3.9 mmoL/L (3.5-5.1); Sodium 140 mmol/L (136-145)
[2019-09-14 09:55] LABS: Blood Urea Nitrogen 124 mg/dL (7-18); Creatinine,Serum 5.07 mg/dL (0.70-1.30)
== END ==
PROVIDERS: Visit Provider Internal Medicine
DX: E11.9 Type 2 diabetes mellitus without complications (principal); E78.2 Mixed hyperlipidemia; I11.0 Hypertensive heart disease with heart failure; I25.10 Atherosclerotic heart disease of native coronary artery without angina pectoris; I34.0 Nonrheumatic mitral (valve) insufficiency; I48.0 Paroxysmal atrial fibrillation; R60.0 Localized edema; Z79.84 Long term (current) use of oral hypoglycemic drugs
CPT/HCPCS: 36415; 80048

== ENCOUNTER → 2019-09-22 12:42 | Outpatient (CLI) | payer MEDICARE, SELFPAY ==
--- NOTE | 2019-09-22 12:44 | XR_ITS ---
PROCEDURE: XR CHEST 2V CLINICAL HISTORY: sob Shortness of breath COMPARISON: 11/28/2018 FINDINGS: Prior CABG and atrial appendage clipping on the left. There is an AICD present with right atrial lead. Right IJ Vas-Cath is present with the tip in the region the SVC. There is blunting of the left CP angle consistent with small left effusion versus chronic pleural thickening. No lobar consolidation or collapse. No acute bony findings. IMPRESSION: Chronic changes and postsurgical changes with cardiomegaly and chronic blunting of the left CP angle which may be due to chronic pleural effusion versus pleural thickening Dictated by: Kyle Vu MD 09/22/2019 17:11 Electronically signed by Kyle Vu MD in [place] 09/22/2019 17:11
== END ==
PROVIDERS: PCP Family Medicine; Visit Provider Nurse Practitioner Family
DX: I25.10 Atherosclerotic heart disease of native coronary artery without angina pectoris (principal); R06.09 Other forms of dyspnea; Z95.810 Presence of automatic (implantable) cardiac defibrillator
CPT/HCPCS: 71046

== ENCOUNTER 2020-07-11 09:38 | Day surgery (SDC) | payer MEDICARE, SELFPAY ==
[2020-07-11] VITALS (9 sets, daily range): BP systolic 102–128; BP diastolic 53–82; PULSE 64–76; RESP 14–18; TEMP 36.8; O2SAT 88–100; BMI 26.4
--- NOTE | 2020-07-11 | IR_ITS ---
APPROVED REPORT Patient Location: Outpatient Central Office Equipment Engineer: MARCO White RT (R) PROCEDURES Pocket Revision Removal of old Pacemaker Implant of Permanent Pacemaker INDICATION Systolic Congestive Heart Failure, ejection < 35%, [place] Heart Assoication Class 3 Congestive Heart Failure, QRS >120ms, Ischemic Cardiomyopathy, End of battery life Informed consent was obtained prior to the procedure. COMPLICATIONS None Estimated Blood Loss: less than 10 mls TECHNIQUE 2% lidocaine used to anesthetize the left anterior aspect of the chest. Scalpel was used to make the initial cutaneous incision and then used to dissect down to the existing pacemaker generator. The generator was removed from the existing pocket. Digital manipulation was required along with intermittent usage of scalpel in order to revise the pocket. The leads were removed from the old generator. The new generator was screwed to the existing leads and secured into place. Electronic interrogation proved acceptable thresholds and voltage within the lead. Antibiotics were used to flush the pocket and the pacemaker was secured using 3-0 silk into the newly revised pocket. Monocryl was used to close the subcutaneous tissue and then sunny were placed on the cutaneous area in order to approximate the incision. Patient was transferred to the postop holding area in stable condition. ANGIOGRAPHIC RESULTS Explanted Generator Model: [id number] Implanted Generator Model: VIGILANT EL ICD DF4-DR, D233 Generator Serial No: [id number] RA Lead Model: CapsureFix Novus Bipolar IS-1, 5076 RA Lead Serial No: [id number] RV Lead Model: Sprint Quattro Secure DF4 Active, 6947M RA Lead Serial No: [id number] Device Measurements: RA Lead: Intrinsic: 1.5mV Threshold: 0.8V @ 0.4ms Impedence: 459 ohms RV Lead: Intrinsic: 8.2mV Threshold: 0.7V @ 0.4ms Impedence: 416 ohms Parameters: Mode: DDDR RYTHMIQ: AAIR with VVI Backup Base/Max: 60/130ppm VF: 220bpm VT: 180bpm IMPRESSION Successful Pocket Revision Successful Removal of old Pacemaker Successful Implant of Permanent Pacemaker PLAN 1. Post op wound care Electronically signed by : Colton Rivero, 07/11/2020 14:18:38
[2020-07-11 10:54] LABS: Basophils % 0.6 % (0.1-2.0); Eosinophils # 0.2 K/mm3 (0.0-0.4); Eosinophils % 3.1 % (0.1-12.0); Hematocrit 35.3 % (42.0-52.0); Lymphocytes # 1.6 K/mm3 (0.7-4.5); Lymphocytes % 25.3 % (10-50); Mean Corpuscular HGB Conc 33.9 g/dL (31.8-35.4); Mean Corpuscular Hemoglobin 33.9 pg (27.0-31.2); Mean Corpuscular Volume 99.9 fl (80-94); Monocytes # 0.4 K/mm3 (0.1-1.0); Monocytes % 7.1 % (1.7-9.3); Neutrophils # 3.9 K/mm3 (1.8-7.8); Neutrophils % 63.9 % (37.0-80.0); Platelet Count 197 K/mm3 (142-424); Red Blood Count 3.53 M/mm3 (4.60-6.20); Red Cell Distribution Width 13.9 % (11.5-17.5); White Blood Count 6.1 K/mm3 (4.8-10.8)
[2020-07-11 10:57] LABS: Anion Gap 20.5 mEq/L (5-15); Blood Urea Nitrogen 54 mg/dl (9-20); Calcium 9.8 mg/dl (8.4-10.2); Carbon Dioxide 29 mmol/L (22.0-30.0); Chloride 92 mmol/L (98-107); Creatinine Clearance Estimated 15 mL/min (50-200); Estimated Glomerular Filt Rate 12 ml/min (>60); GFR (African American) 14 ML/MIN (>60); Glucose 127 mg/dl (74-100); Potassium 4.5 mmoL/L (3.5-5.1); Sodium 137 mmol/L (136-145)
[2020-07-11 11:24] LABS: Coronavirus 19 IgG Antibody Negative (Negative)
[2020-07-11 11:25] LABS: Coronavirus 19 IgM Antibody Negative (Negative)
== END 2020-07-11 14:19 | disposition home or self-care (01) ==
LOC: CATHLAB 09:40
PROVIDERS: PCP Family Medicine; Visit Provider Internal Medicine
DX: Z45.010 Encounter for checking and testing of cardiac pacemaker pulse generator [battery] (principal); I50.23 Acute on chronic systolic (congestive) heart failure; I34.0 Nonrheumatic mitral (valve) insufficiency; I48.0 Paroxysmal atrial fibrillation; N18.4 Chronic kidney disease, stage 4 (severe); Z79.84 Long term (current) use of oral hypoglycemic drugs; Z88.0 Allergy status to penicillin; Z88.8 Allergy status to other drugs, medicaments and biological substances; I13.0 Hypertensive heart and chronic kidney disease with heart failure and stage 1 through stage 4 chronic kidney disease, or unspecified chronic kidney disease; E11.22 Type 2 diabetes mellitus with diabetic chronic kidney disease; N18.3 Chronic kidney disease, stage 3 (moderate); I25.5 Ischemic cardiomyopathy
CPT/HCPCS: 33263; 80048; 85025; 86328; 99152; C1721

== ENCOUNTER 2021-05-29 07:01 | Day surgery (SDC) | payer MEDICARE, SELFPAY ==
[2021-05-29] VITALS (20 sets, daily range): BP systolic 104–152; BP diastolic 31–64; PULSE 38–72; RESP 16–18; TEMP 36.9; O2SAT 92–100; BMI 26.2
--- NOTE | 2021-05-29 | IR_ITS ---
APPROVED REPORT Patient Location: Outpatient Welfare Eligibility Worker: MARCO Sequeira RT (R) PROCEDURES Left heart catheterization Left ventriculogram Selective coronary angiogram Selective engagement left internal mammary artery to the LAD Selective engagement saphenous vein graft to the first and second obtuse marginal artery Selective engagement of the saphenous vein graft to the diagonal artery INDICATION Coronary disease, Systolic congestive heart failure class III-IV, History of coronary bypass surgery, Worsening angina pectoris Informed consent was obtained prior to the procedure. COMPLICATIONS None Estimated Blood Loss: Less than 10 mls TECHNIQUE One percent lidocaine used to anesthetize the right groin. The right femoral artery was accessed via the Seldinger technique and a 5 Azeri sheath was placed in the right femoral artery. A JL 4, JR4 catheter were used to perform left heart catheterization, left ventriculogram selective coronary angiography as well as selective engagement of the 2 vein grafts and the left internal mammary artery. At the end of the procedure the patient was transferred to the postop holding area in stable condition for sheath removal. ANGIOGRAPHIC RESULTS The left main artery Patent The left anterior descending artery Proximally occluded The circumflex artery Proximally occluded The right coronary artery Nondominant vestigial less than 1 mm in diameter with a mid vessel 90% stenosis. The coronary does not supply the left ventricle The DONG ventriculogram reveals Severely dilated ejection fraction 15 to 20% The left ventricular end-diastolic pressure 20 mmHg Left internal mammary is widely patent to the LAD Saphenous vein graft to the first and second obtuse marginal artery is widely patent Saphenous vein graft to small diagonal arteries widely patent IMPRESSION Severe [place] coronary disease as described above Patent four-vessel CABG as described above Dilated ventricle with severely reduced ejection fraction Mild elevated LVEDP PLAN 1. Continue heart failure medications 2. Supportive care Electronically signed by : Colton Rivero, 05/29/2021 12:12:05
[2021-05-29 07:26] LABS: Basophils % 0.3 % (0.1-2.0); Eosinophils # 0.3 K/mm3 (0.0-0.4); Eosinophils % 5.5 % (0.1-12.0); Hematocrit 33.9 % (42.0-52.0); Hemoglobin 10.9 g/dL (14.1-18.0); Lymphocytes # 1.4 K/mm3 (0.7-4.5); Lymphocytes % 23.3 % (10-50); Mean Corpuscular HGB Conc 32.2 g/dL (31.8-35.4); Mean Corpuscular Hemoglobin 32.3 pg (27.0-31.2); Mean Corpuscular Volume 100.1 fl (80-94); Mean Platelet Volume 10.9 fl (7.4-10.4); Monocytes # 0.4 K/mm3 (0.1-1.0); Monocytes % 6.6 % (1.7-9.3); Neutrophils % 64.4 % (37.0-80.0); Platelet Count 118 K/mm3 (142-424); Red Blood Count 3.39 M/mm3 (4.60-6.20); Red Cell Distribution Width 13.8 % (11.5-17.5); White Blood Count 6.2 K/mm3 (4.8-10.8)
[2021-05-29 07:31] LABS: Chloride 96 mmol/L (98-107); Potassium 3.9 mmoL/L (3.5-5.1); Sodium 139 mmol/L (136-145)
[2021-05-29 07:34] LABS: Anion Gap 12.9 mEq/L (5-15); Blood Urea Nitrogen 41 mg/dl (9-20); Calcium 8.7 mg/dl (8.4-10.2); Carbon Dioxide 34 mmol/L (22.0-30.0); Estimated Glomerular Filt Rate 8 ml/min (>60); GFR (African American) 10 ML/MIN (>60); Glucose 210 mg/dl (74-100)
== END 2021-05-29 14:09 | disposition home or self-care (01) ==
PROVIDERS: PCP Family Medicine; Visit Provider Internal Medicine
DX: E78.5 Hyperlipidemia, unspecified (principal); I25.10 Atherosclerotic heart disease of native coronary artery without angina pectoris; I48.91 Unspecified atrial fibrillation; I50.22 Chronic systolic (congestive) heart failure; N18.4 Chronic kidney disease, stage 4 (severe); Z95.810 Presence of automatic (implantable) cardiac defibrillator; I13.0 Hypertensive heart and chronic kidney disease with heart failure and stage 1 through stage 4 chronic kidney disease, or unspecified chronic kidney disease; Z88.8 Allergy status to other drugs, medicaments and biological substances; Z79.899 Other long term (current) drug therapy; Z95.1 Presence of aortocoronary bypass graft; Z20.822 Contact with and (suspected) exposure to COVID-19
CPT/HCPCS: 36415; 80048; 85025; 93459; 99152; 99153; C1725; C1769; C1894; J1644; J2405; Q9967; U0003

== ENCOUNTER 2021-11-06 09:34 | Day surgery (SDC) | payer MEDICARE, SELFPAY ==
[2021-11-06 09:27] VITALS: BMI 25.4
[2021-11-06 10:43] LABS: Basophils % 0.4 % (0.1-2.0); Eosinophils # 0.1 K/mm3 (0.0-0.4); Eosinophils % 2.3 % (0.1-12.0); Hematocrit 34.1 % (42.0-52.0); Hemoglobin 11.2 g/dL (14.1-18.0); Lymphocytes # 1.4 K/mm3 (0.7-4.5); Lymphocytes % 30.7 % (10-50); Mean Corpuscular HGB Conc 32.9 g/dL (31.8-35.4); Mean Corpuscular Hemoglobin 33.6 pg (27.0-31.2); Mean Corpuscular Volume 102.1 fl (80-94); Mean Platelet Volume 11.1 fl (7.4-10.4); Monocytes # 0.3 K/mm3 (0.1-1.0); Monocytes % 6.2 % (1.7-9.3); Neutrophils # 2.8 K/mm3 (1.8-7.8); Neutrophils % 60.4 % (37.0-80.0); Platelet Count 103 K/mm3 (142-424); Red Blood Count 3.34 M/mm3 (4.60-6.20); Red Cell Distribution Width 14.4 % (11.5-17.5); White Blood Count 4.6 K/mm3 (4.8-10.8)
[2021-11-06 10:44] LABS: Coronavirus 19, PCR Not Detected (NotDetected); Influenza A, PCR Not Detected (NotDetected); Influenza B, PCR Not Detected (NotDetected)
[2021-11-06 10:45] VITALS: BP 122/44; PULSE 67; PULSE 70; RESP 18; TEMP 36.6; O2SAT 99
[2021-11-06 10:53] LABS: Chloride 97 mmol/L (98-107)
[2021-11-06 10:54] LABS: Potassium 4.3 mmoL/L (3.5-5.1); Sodium 141 mmol/L (136-145)
[2021-11-06 10:57] LABS: Anion Gap 14.3 mEq/L (5-15); Blood Urea Nitrogen 46 mg/dl (9-20); Carbon Dioxide 34 mmol/L (22.0-30.0); Creatinine Clearance Estimated 11 mL/min (50-200); Estimated Glomerular Filt Rate 9 ml/min (>60); GFR (African American) 11 ML/MIN (>60); Glucose 129 mg/dl (74-100)
--- NOTE | 2021-11-06 13:19 | SUR.PREOP ---
PROCEDURE CANCELED PER M.D. AFTER PACEMAKER WAS INTERROGATED M.D. DETERMINED PROCEDURE NOT NEEDED
== END 2021-11-06 13:24 | disposition home or self-care (01) ==
LOC: CATHLAB 09:36
PROVIDERS: PCP Family Medicine; Visit Provider Internal Medicine
DX: Z53.9 Procedure and treatment not carried out, unspecified reason (principal); T82.110A Breakdown (mechanical) of cardiac electrode, initial encounter; I50.22 Chronic systolic (congestive) heart failure; Z20.822 Contact with and (suspected) exposure to COVID-19
CPT/HCPCS: 80048; 85025; C9803; U0003; U0005